=== PATIENT | female | born 1965 | race Caucasian/White ===

== ENCOUNTER 2017-09-11 00:42 | Emergency (ER) | payer MEDICAID ==
[~2017-09-11] VITALS: Ht 180.3 cm; Wt 45.4 kg
--- NOTE | 2017-09-11 00:57 | Emergency Room Report ---
History of Present Illness General Chief Complaint: Nausea, Vomiting, and Diarrhea Source: Patient, EMS Present Illness HPI Is a 51-year-old female with no past medical history. She presents with chief complaint of abdominal pain with vomiting and diarrhea. Onset for one day. Unable to keep anything down. Vomiting is nonbloody nonbilious. Diarrhea is watery. She felt weak and near syncope with standing. Call 911. Denies any other complaint. No chest pain. No syncope. Allergies: Coded Allergies: No Known Allergies (Unverified , 09/11/17) Patient History Past Medical History: none, see triage record, old chart reviewed Past Surgical History: none Pertinent Family History: none Social History: Denies: smoking Now: No Immunizations: other Reviewed Nursing Documentation: PMH: Agreed, PSxH: Agreed Nursing Documentation-PMH Past Medical History: No Stated History Review of Systems Constitutional: Reports: weakness Eye: Denies: eye pain, blurred vision ENT: Denies: ear pain, nose congestion, throat swelling Respiratory: Denies: cough, shortness of breath Cardiovascular: Denies: chest pain, palpitations Gastrointestinal: Reports: abdominal pain, diarrhea, nausea, vomiting Musculoskeletal: Denies: back pain, joint pain Skin: Denies: rash Neurological: Denies: headache, numbness Endocrine: Denies: increased thirst, increased urine Hematologic/Lymphatic: Denies: easy bruising All Other Systems: negative except mentioned in HPI Physical Exam Vital Signs Date Time Temp Pulse Resp B/P (MAP) Pulse Ox O2 Delivery O2 Flow Rate FiO2 09/11/17 00:39 98.2 52 16 105/66 100 Room Air vitals normal Sp02 EP Interpretation: reviewed, normal General Appearance: well appearing, no apparent distress, alert Head: normocephalic, atraumatic Eyes: bilateral eye PERRL, bilateral eye EOMI ENT: hearing grossly normal, normal pharynx Neck: full range of motion, supple, no meningismus Respiratory: chest non-tender, lungs clear, normal breath sounds Cardiovascular #1: regular rate, rhythm, no murmur Gastrointestinal: normal bowel sounds, non tender, no mass, no organomegaly, no bruit, non-distended Musculoskeletal: back normal, gait/station normal, normal range of motion Psychiatric: mood/affect normal Skin: warm/dry Medical Decision Making Diagnostic Impression: Primary Impression: Nausea, vomiting, and diarrhea Additional Impression: Dehydration ER Course Patient with nausea vomiting and diarrhea and generalized weakness from this. She felt better now. Blood pressure is improved. She said she normally runs low blood pressure. Able to ambulate without any difficulty. We'll discharge home. I see no evidence of an acute abdomen. No arrhythmia. Lab Results Impression labs unremarkable Last Vital Signs Date Time Temp Pulse Resp B/P (MAP) Pulse Ox O2 Delivery O2 Flow Rate FiO2 09/11/17 00:39 98.2 52 16 105/66 100 Room Air Status: improved Disposition: HOME, SELF-CARE Condition: Stable Scripts Ondansetron Odt* (ZOFRAN ODT*) 4 Mg Tab.rapdis 4 MG ORAL Q6H Y for Nausea & Vomiting, #10 TAB 0 Refills Prov: KELLY CALDERA M.D. 09/11/17 Patient Instructions: DIET, Vomiting or Diarrhea [7yr-Adult] Additional Instructions: Followup with your Dr. in 3-5 days. Return if symptom worsen. KELLY CALDERA M.D. Sep 11, 2017 00:57
[2017-09-11 01:00] VITALS: BP 90/60
[2017-09-11 01:20] LABS: HEMATOCRIT 39.5 % (37.0-47.0); HEMOGLOBIN 13.3 G/DL (12.0-16.0); MEAN CORPUSCULAR VOLUME 101 FL (80-99); PLATELET COUNT 245 K/UL (150-450); RED BLOOD COUNT 3.92 M/UL (4.20-5.40); RED CELL DISTRIBUTION WIDTH 11.1 % (11.6-14.8); WHITE BLOOD COUNT 7.9 K/UL (4.8-10.8)
[2017-09-11 01:27] LABS: ANION GAP 7 mmol/L (5-15); BLOOD UREA NITROGEN 20 mg/dL (7-18); CALCIUM 8.5 MG/DL (8.5-10.1); CARBON DIOXIDE 27 MMOL/L (21-32); CHLORIDE 104 MMOL/L (98-107); CREATININE 0.9 MG/DL (0.55-1.30); POTASSIUM 3.5 MMOL/L (3.5-5.1); SODIUM 138 MMOL/L (136-145)
[2017-09-11 02:00] VITALS: BP 88/48
[2017-09-11] MEDS ORDERED: ZOFRAN ODT4 MG ORAL (02:17)
[2017-09-11 03:00] VITALS: BP 82/48
[2017-09-11 04:00] VITALS: BP 89/51
[2017-09-11 04:47] LABS: APPEARANCE,URINE CLEAR; BILIRUBIN, URINE NEGATIVE (NEGATIVE); COLOR,URINE PALE YELLOW; GLUCOSE, URINE (UA) NEGATIVE (NEGATIVE); KETONES,URINE 2+ (NEGATIVE); LEUKOCYTE ESTERASE ,URINE NEGATIVE (NEGATIVE); NITRITE,URINE NEGATIVE (NEGATIVE); PH,URINE 5 (4.5-8.0); PROTEIN,URINE NEGATIVE (NEGATIVE); UROBILINOGEN,URINE NORMAL MG/DL (0.0-1.0)
[2017-09-11 05:10] VITALS: BP 88/51
[2017-09-11 06:55] VITALS: BP 88/51
== END 2017-09-11 06:55 | disposition home or self-care (01) ==
LOC: EDBD 00:42 → EMR 02:53 → CANBEDREQ 05:51 → EMR 06:55
DX: R11.2 Nausea with vomiting, unspecified (principal); E86.0 Dehydration; R10.9 Unspecified abdominal pain
CPT/HCPCS: 36415; 80048; 81003; 85007; 85025; 96361; 96374; 99284; J2405